=== PATIENT | female | born 1995 | race Caucasian/White ===

== ENCOUNTER 2023-10-09 14:28 | Emergency (ER) | payer OTHER ==
[~2023-10-09] VITALS: Ht 154.9 cm; Wt 54.4 kg
[~2023-10-09 14:28] MED LIST: AMOX TR-K CLV1 EAC2 PO
[2023-10-09 14:33] VITALS: PULSE 108; RESP 18; TEMP 97.7; O2SAT 98
== END 2023-10-09 15:50 | disposition home or self-care (01) ==
LOC: ER 15:28
DX: H91.8X1 Other specified hearing loss, right ear (principal); H93.11 Tinnitus, right ear; F17.210 Nicotine dependence, cigarettes, uncomplicated
CPT/HCPCS: 99283

== ENCOUNTER 2023-12-01 22:33 | Emergency (ER) | payer OTHER ==
[~2023-12-01] VITALS: Ht 154.9 cm; Wt 54.4 kg
[2023-12-01 23:38] LABS: BILIRUBIN,URINE NEGATIVE (NEGATIVE); CLARITY,URINE SL CLOUDY (CLEAR); COLOR,URINE YELLOW (YELLOW); GLUCOSE, URINE NEGATIVE (NEGATIVE); KETONES,URINE NEGATIVE (NEGATIVE); LEUKOCYTE ESTERASE ,URINE NEGATIVE (NEGATIVE); NITRITE,URINE NEGATIVE (NEGATIVE); PH,URINE 7 (5 - 7); PROTEIN,URINE DIPSTICK NEGATIVE (NEGATIVE); URINE UROBILINOGEN 1 mg/dL (0.2 - 1)
[2023-12-01 23:39] LABS: AMPHETAMINES SCREEN,URINE POSITIVE (NEGATIVE); BENZODIAZEPINES SCREEN,URINE NEGATIVE (NEGATIVE); CANNABINOIDS SCREEN,URINE NEGATIVE (NEGATIVE); METHADONE SCREEN, URINE NEGATIVE (NEGATIVE); OPIATES SCREEN,URINE NEGATIVE (NEGATIVE); PHENCYCLIDINE SCREEN,URINE NEGATIVE (NEGATIVE); PREGNANCY TEST, URINE NEGATIVE (NEGATIVE)
[2023-12-01 23:49] LABS: AMORPHOUS SEDIMENT,URINE MODERATE (FEW); BACTERIA,URINE MANY /HPF; EPITHELIAL CELLS,URINE MANY /LPF; TRANSITIONAL EPI CELLS,URINE FEW
[2023-12-02 05:12] VITALS: PULSE 81; RESP 18; TEMP 98.7; O2SAT 99
== END 2023-12-02 00:10 | disposition home or self-care (01) ==
LOC: ER 22:38
DX: N93.8 Other specified abnormal uterine and vaginal bleeding (principal); R10.30 Lower abdominal pain, unspecified; F15.10 Other stimulant abuse, uncomplicated
CPT/HCPCS: 36415; 80307; 81001; 81025; 84702; 99283

== ENCOUNTER 2023-12-30 19:27 | Emergency (ER) | payer OTHER ==
[~2023-12-30] VITALS: Ht 157.5 cm; Wt 45.4 kg
[2023-12-30 19:40] VITALS: PULSE 106; RESP 18; TEMP 98.6; O2SAT 99
[2023-12-30] MEDS: ACETAMINOPHEN 325 MG TAB PO ONE (19:53)
[2023-12-30] MEDS ORDERED: ACETAMINOPHEN 325 MG TAB ONE (19:54)
[2023-12-30 20:10] LABS: INFLUENZAE A&B ANTIGEN (RAPID) NEGATIVE (NEGATIVE); STREPTOCOCCUS GRP A ANTIGEN NEGATIVE (NEGATIVE)
[2023-12-30 20:13] LABS: RESPIRATORY SYNC. VIRUS NEGATIVE (NEGATIVE)
[2023-12-30] MEDS ORDERED: MEDROL4 M2 PO (20:17)
== END 2023-12-30 20:21 | disposition home or self-care (01) ==
LOC: ER 19:34
DX: R05.9 Cough, unspecified (principal); J06.9 Acute upper respiratory infection, unspecified; R51.9 Headache, unspecified; Z11.52 Encounter for screening for COVID-19; F17.210 Nicotine dependence, cigarettes, uncomplicated
CPT/HCPCS: 0223U; 36415; 83518; 87070; 87400; 87420; 99283

== ENCOUNTER 2024-02-12 10:43 | Emergency (ER) | payer OTHER ==
[~2024-02-12] VITALS: Ht 157.5 cm; Wt 45.4 kg
[~2024-02-12 10:43] MED LIST changes: +MEDROL4 M2 PO
[2024-02-12 10:49] VITALS: PULSE 89; RESP 15; TEMP 97.9; O2SAT 100
[2024-02-12] MEDS ORDERED: GOLYTELY SOLU4000 M1 PO (11:06)
== END 2024-02-12 11:30 | disposition home or self-care (01) ==
LOC: ER 11:00
DX: R14.0 Abdominal distension (gaseous) (principal); K59.00 Constipation, unspecified; E03.9 Hypothyroidism, unspecified
CPT/HCPCS: 99283

== ENCOUNTER 2024-04-01 13:39 | Emergency (ER) | payer OTHER ==
[~2024-04-01] VITALS: Ht 157.5 cm; Wt 45.4 kg
[~2024-04-01 13:39] MED LIST changes: +GOLYTELY SOLU4000 M1 PO
[2024-04-01 13:59] VITALS: PULSE 107; RESP 17; TEMP 99.4; O2SAT 100
[2024-04-01] MEDS ORDERED: IBUPROFEN 600 MG TAB PO STA (14:05)
[2024-04-01] MEDS ORDERED: KETOROLAC TROMETHAMINE 30 MG/ML VIAL ONE (14:15)
[2024-04-01] MEDS: ACETAMINOPHEN 325 MG TAB PO ONE (14:21)
[2024-04-01] MEDS: KETOROLAC TROMETHAMINE 30 MG/ML VIAL IV STA (14:22)
[2024-04-01 14:48] LABS: INFLUENZA B NAA NEGATIVE (NEGATIVE)
[2024-04-01 14:50] LABS: INFLUENZA A NAA POSITIVE (NEGATIVE)
== END 2024-04-01 16:26 | disposition home or self-care (01) ==
LOC: ER 14:13
DX: R50.9 Fever, unspecified (principal); J10.1 Influenza due to other identified influenza virus with other respiratory manifestations; R05.9 Cough, unspecified; E03.9 Hypothyroidism, unspecified; F17.210 Nicotine dependence, cigarettes, uncomplicated
CPT/HCPCS: 99283; J1885

== ENCOUNTER 2024-10-01 08:04 | Emergency (ER) | payer OTHER ==
[~2024-10-01] VITALS: Ht 157.5 cm; Wt 45.4 kg
[2024-10-01 08:07] VITALS: PULSE 94; RESP 18; TEMP 98
[2024-10-01] MEDS: KETOROLAC TROMETHAMINE 30 MG/ML VIAL IM STA (08:46)
[2024-10-01] MEDS: IBUPROFEN 400 MG TAB PO ONE (09:12)
[2024-10-01] MEDS ORDERED: NAPROXEN375 MG PO (09:17)
[2024-10-01 09:34] VITALS: BP 126/76; PULSE 91; RESP 17; O2SAT 100
== END 2024-10-01 09:37 | disposition home or self-care (01) ==
LOC: ER 08:08
DX: M79.672 Pain in left foot (principal); E06.3 Autoimmune thyroiditis; F17.210 Nicotine dependence, cigarettes, uncomplicated
CPT/HCPCS: 99283; J1885

== ENCOUNTER 2024-10-24 14:25 | Emergency (ER) | payer OTHER ==
[~2024-10-24] VITALS: Ht 157.5 cm; Wt 45.4 kg
[~2024-10-24 14:25] MED LIST changes: +NAPROXEN375 MG PO
[2024-10-24 14:34] VITALS: PULSE 101; RESP 17; TEMP 97.7; O2SAT 100
[2024-10-24] MEDS ORDERED: TETRACAINE HCL 0.5% OPTH SOLN 4 ML BTL ONE (15:35)
[2024-10-24] MEDS ORDERED: FLUORESCEIN SOD(OPTH) 1 MG STRP ONE (15:35)
[2024-10-24] MEDS ORDERED: DOXYCYCLINE HY100 MG PO (15:55)
== END 2024-10-24 16:13 | disposition home or self-care (01) ==
LOC: ER 15:23
DX: H01.00B Unspecified blepharitis left eye, upper and lower eyelids (principal); S05.02XA Injury of conjunctiva and corneal abrasion without foreign body, left eye, initial encounter; X58.XXXA Exposure to other specified factors, initial encounter; Y92.89 Other specified places as the place of occurrence of the external cause; E06.3 Autoimmune thyroiditis; F17.210 Nicotine dependence, cigarettes, uncomplicated
CPT/HCPCS: 99283